=== PATIENT | female | born 1985 | race Two or more races ===

== ENCOUNTER 2024-03-08 07:04 | Emergency (ER) | payer OTHER ==
[~2024-03-08] VITALS: Ht 170.2 cm; Wt 67.7 kg
[2024-03-08 07:39] VITALS: BP 104/86; PULSE 73; RESP 17; TEMP 98; O2SAT 97
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
[2024-03-08] MEDS: KETOROLAC TROMETH 60MG/2ML VIAL IM ONE (09:54)
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
[2024-03-08] MEDS ORDERED: METH-1181 PO (10:36)
[2024-03-08] MEDS ORDERED: NAPR-746 PO (10:36)
[2024-03-08] MEDS ORDERED: LIDO5DIS21 TOP (10:36)
== END 2024-03-08 10:44 | disposition home or self-care (01) ==
LOC: ER 07:04
DX: M54.2 Cervicalgia (principal); R51.9 Headache, unspecified; M79.18 Myalgia, other site; V89.2XXA Person injured in unspecified motor-vehicle accident, traffic, initial encounter; Y93.89 Activity, other specified; Y92.410 Unspecified street and highway as the place of occurrence of the external cause; Y99.8 Other external cause status
CPT/HCPCS: 70450; 72125; 81025; 96372; 99285; J1885